=== PATIENT | male | born 1990 | race Caucasian/White ===

== ENCOUNTER 2016-05-30 22:56 | Emergency (ER) | payer BC ==
[~2016-05-30] VITALS: Ht 175.3 cm; Wt 81.8 kg
[~2016-05-30 22:56] MED LIST: FLEXERIL 1010 MG/TAB PO; MOTRIN 800800 MG/TAB PO; NAPROSYN500 MG PO; NORCO 325 MG-51 TAB PO; PHENERGAN W/CO120 M1 PO; PROAIR HFA0.09 MG/AC IH; ZITHROMAX Z PA250 MG PO; ZOFRAN 4MG T4 MG/TAB PO
[2016-05-30 23:20] VITALS: BP 123/92; TEMP 98.4
[2016-05-30] MEDS ORDERED: CLEOCIN HCL300 MG PO (23:42)
[2016-05-30 23:50] VITALS: PULSE 100
== END 2016-05-30 23:51 | disposition home or self-care (01) ==
LOC: COL.ER 22:56
DX: K08.89 Other specified disorders of teeth and supporting structures (principal); F17.210 Nicotine dependence, cigarettes, uncomplicated

== ENCOUNTER 2016-06-24 11:24 | Emergency (ER) | payer OTHER ==
[~2016-06-24] VITALS: Ht 177.8 cm; Wt 84.1 kg
[~2016-06-24 11:24] MED LIST changes: +CLEOCIN HCL300 MG PO
[2016-06-24 11:28] VITALS: BP 149/92; PULSE 87; TEMP 98.7
[2016-06-24] MEDS ORDERED: CLEOCIN HCL300 MG PO (12:25)
[2016-06-24] MEDS ORDERED: ULTRAM 50MG TAB50 MG PO (12:25)
== END 2016-06-24 12:31 | disposition home or self-care (01) ==
LOC: COL.ER 11:24
DX: K12.2 Cellulitis and abscess of mouth (principal); K08.89 Other specified disorders of teeth and supporting structures; F17.210 Nicotine dependence, cigarettes, uncomplicated

== ENCOUNTER 2016-07-09 08:47 | Emergency (ER) | payer OTHER ==
[~2016-07-09] VITALS: Ht 172.7 cm; Wt 84.5 kg
[~2016-07-09 08:47] MED LIST changes: +ULTRAM 50MG TAB50 MG PO
[2016-07-09 08:53] VITALS: BP 134/78; TEMP 98.1
[2016-07-09] MEDS ORDERED: NORCO 325 MG-51 TAB PO (09:24)
[2016-07-09 09:46] VITALS: PULSE 99
== END 2016-07-09 09:48 | disposition home or self-care (01) ==
LOC: COL.ER 08:47
DX: K08.89 Other specified disorders of teeth and supporting structures (principal)
CPT/HCPCS: J1885